=== PATIENT | male | born 1995 | race Caucasian/White ===

== ENCOUNTER 2020-11-23 12:47 | Emergency (ER) | payer OTHER, SELFPAY ==
[2020-11-23 12:48] VITALS: BP 130/75; PULSE 73; RESP 14; TEMP 36.4; O2SAT 97; BMI 28.4
--- NOTE | 2020-11-23 13:01 | EX.ED.UPPERE ---
HPI History of Present Illness Chief Complaint: Upper Extremity Injury Informant: patient Occured/Mechanism Mechanism/Context: Yes injury and Yes same level fall Onset/Context/Timing Onset: Yesterday Context: Gradual Onset Timing: Continuous Quality of Pain: Aching Current Severity: Moderate Maximum Severity: Moderate Narrative Narrative: The patient is a 24-year-old male is otherwise healthy the presents to the emergency department with right wrist injury. Patient is right-hand dominant. He states that he had some sort of night terror last night. He states he jumped out of bed because he was scared. He did want to try to get back into bed, but was too far away. He fell on an outstretched hand. He did not strike his head. He denies loss of consciousness. Since then, he had dull aching pain in the wrist that is worse with range of motion. PFSH PFSH Allergy/AdvReac Type Severity Reaction Status Date / Time No Known Allergies Allergy Verified 11/23/20 12:50 Social History Smoking Status: Unknown if ever smoked ROS ROS ED Constitutional Constitutional ED: Denies chills or fever(s) Eyes Eyes: Denies blurry vision or change in vision ENT ENT ED: Denies ear pain or sore throat Cardiovascular Cardiovascular: Denies chest pain or palpitations Respiratory/Chest Respiratory/Chest: Denies cough, dyspnea or dyspnea on exertion Gastrointestinal Gastrointestinal: Denies abdominal pain, nausea or vomiting Genitourinary Genitourinary ED: Denies dysuria or urinary frequency Musculoskeletal Musculoskeletal: Denies arthralgias or myalgias Integumentary Denies rash Neurologic Neurologic: Denies headache(s) or paresthesias Psychiatric Psychiatric: Denies anxiety or depression Endocrine Endocrinology: Denies polydipsia or polyuria Allergic/Immunologic Allergic/Immunologic ED: Denies urticaria EXAM Physical Exam Const Vital Signs: 11/23/20 12:48 Temperature 97.6 F L Temperature Source Temporal Pulse Rate 73 Respiratory Rate 14 Blood Pressure 130/75 H Blood Pressure Mean 93 Pulse Ox 97 Oxygen Delivery Method Room Air Positive well nourished and well developed General Appearance ED: well developed HEENT Reports normocephalic, head/scalp atraumatic and moist mucous membranes Eyes PERRL and EOMs intact bilaterally Neck no lymphadenopathy and supple General: Negative for tenderness Chest Wall inspection of chest normal Resp normal respiratory effort and clear to auscultation bilaterally Cardio regular rate, regular rhythm and no murmurs GI normal to inspection, nondistended, normoactive bowel sounds Palpation: Negative for tender, guarding or rebound tenderness present Back/Spine no CVA tenderness Cervical Spine: Negative for cervical spine tenderness Thoracic Spine / Upper Back: Negative for thoracic spinal tenderness Extremity normal to inspection Extremity Narrative: Patient does have some tenderness over the wrist. There is no obvious deformity. His pulses are normal. Anterior interosseous, posterior interosseous, and ulnar nerve are preserved. General Extremety ED: Negative for tenderness Neuro oriented x3 and CN's II-XII intact bilaterally Neuro Narrative: No focal deficits appreciated. Sensorium / Orientation: alert Psych mental status grossly normal Skin no rashes or lesions noted, no wounds and skin turgor normal MDM MDM MDM Narrative Medical decision making narrative: Plain films obtained of the patient's right wrist. They are reviewed by both myself and the radiologist. There is no evidence of fracture dislocation. I do feel he likely has a ligamentous strain. The patient be placed in a Velcro wrist splint for comfort. He will continue anti-inflammatories as needed. He will be discharged home. Impression 1. Right wrist sprain Lab Data Attestation: I reviewed the patient's lab results. Discharge Plan Triage Chief Complaint: Upper Extremity Injury ED Provider: Brendon Martin Dx/Rx/DC Orders Instructions: ED Wrist Sprain Primary Care Provider: Care Physician,No Primary Referrals: Care Physician,No Primary [Primary Care Provider] -
--- NOTE | 2020-11-23 13:10 | RAD_ITS ---
STUDY: X-RAY - RIGHT WRIST REASON FOR EXAM: Male, 24 years old. Injury TECHNIQUE: 3 view(s) of the wrist were obtained. COMPARISON: None. FINDINGS: Normal visualized distal radius and ulna. Normal radiocarpal articulation. Normal distal radioulnar articulation. Normal carpal bones. Normal carpal articulations. Normal carpometacarpal articulation of the thumb. Normal second through fifth carpometacarpal articulations. Normal visualized metacarpal bones. The soft tissue structures are unremarkable. RAD/Wrist min 3 Views IMPRESSION: Normal x-ray examination of the wrist. Electronically Signed: Leland Kenny MD at 13:36 EDT , Service support ,
== END 2020-11-23 14:59 | disposition home or self-care (01) ==
PROVIDERS: Emergency Provider Emergency Medicine
DX: S63.501A Unspecified sprain of right wrist, initial encounter (principal); W19.XXXA Unspecified fall, initial encounter; Y93.9 Activity, unspecified; Y92.9 Unspecified place or not applicable; Y99.9 Unspecified external cause status
CPT/HCPCS: 73110; 99283